=== PATIENT | female | born 1960 | race Caucasian/White ===

== ENCOUNTER → 2024-08-03 12:50 | Outpatient (REF) | payer MEDICARE, OTHER, SELFPAY | LOC: SDSPAT 12:50 | PROVIDERS: ATTENDING PHYSICIAN Obstetrics & Gynecology Gynecologic Oncology; FAMILY PHYSICIAN Family Medicine | DX: D07.1 Carcinoma in situ of vulva (principal) | CPT/HCPCS: 86850; 86900; 86901 ==

== ENCOUNTER 2024-08-07 06:30 | Day surgery (SDC) | payer MEDICARE, OTHER, SELFPAY ==
[2024-08-03 14:09] VITALS: BMI 36.6
[2024-08-07] VITALS (7 sets, daily range): BP systolic 155–187; BP diastolic 76–107; BMI 36.6
[2024-08-07] MEDS: NORMOSOL-R/PLASMALYTE-A 1000 IV (13:55)
[2024-08-07] MEDS: CELEBREX 200 MG PO (14:01)
[2024-08-07] MEDS: NEURONTIN 300 MG PO (14:01)
[2024-08-07] MEDS: TYLENOL 1000 MG PO (14:01)
[2024-08-07] MEDS: HEPARIN 5000 UNITS SC (15:16)
--- NOTE | 2024-08-07 17:05 | OR.RPT ---
Operative Report
Operative Report
Date of operation: August 07, 2024
Preoperative diagnosis: Recurrent Paget's disease of vulva
Postoperative diagnosis same until final pathology
Procedure:
Right sided partial simple vulvectomy including clitoris and right labia
Fractional dilation and curettage
Surgeon: Miguel Chase
Assist: Jennifer Bernabe PA-C
Estimated blood loss 50 cc
Anesthesia: General, LMA
Complications: None
Procedure in detail: This patient was brought to the operating room for resection of recurrent Paget's disease. She has an original diagnosis back in 2014 treated with partial simple vulvectomy and right labia, she has had persistent scaly
erythematous lesion and has been symptomatic for the last 6 to 12 months, because of significant symptoms I did not biopsy it again. Upon arrival to the operating room she was placed in supine position general anesthesia was administered, LMA
intubation was completed. We went ahead and placed in lithotomy position using yellowfin stirrups, all the hair involving mons pubis labia and perianal skin was clipped. The skin was prepped with ChloraPrep and vagina was prepped with Betadine.
The patient was draped. Timeout procedure was completed. I used a marking pen to draw a line starting from mons pubis all the way down to lateral aspects of right labia majora, on the left side incision captured the skin overlying the clitoris and
went to area just above urethra and resected the skin, and then we followed the vaginal introitus margin down to posterior labia minora. I used a [place] tip electrocautery and excised this portion of the skin sparing the base of the clitoris.
Once this was completed specimen was tagged at mons pubis using 2-0 silk suture. I went ahead and began closing the skin incision with a series of interrupted 2-0 Monocryl in a horizontal mattress fashion, between the sutures and 3-0 Monocryl
suture was used to bring the skin edges together and especially around the clitoral foot and periurethral region. Once this was completed we did inject a total of 15 mL of 1% lidocaine with epinephrine on both sides of the incision. Please note
that preemptively prior to performing this excision I had injected similar amount of same medication before. After this because of the relation of Paget's disease to presence of adenocarcinoma in the body I decided to perform an exam next the
vagina was completely normal. Cervix was grasped with single-tooth tenaculum, the cervical os was dilated. Sharp curettage of the endocervix labeled ECC was performed and submitted to pathology. Sharp curettage of the endometrial cavity was
performed and that was submitted to pathology. Counts of laps instruments and needle was correct x 2, I was present and scrubbed for entire procedure as dictated above. We did apply a Silvadene cream to the line of incision and then placed a
Kerlix gauze open has a dressing patient was transferred to PACU.
Disposition: To PACU stable awake and extubated
[2024-08-07] MEDS: DILAUDID 0.5 MG IV (17:08)
[2024-08-07] MEDS: ROXICODONE 5 MG PO (18:14)
== END 2024-08-07 18:45 | disposition home or self-care (01) ==
LOC: SDS 06:30
PROVIDERS: ATTENDING PHYSICIAN Obstetrics & Gynecology Gynecologic Oncology; FAMILY PHYSICIAN Family Medicine
DX: C51.9 Malignant neoplasm of vulva, unspecified (principal)
CPT/HCPCS: 56620; 88305; 88309; 86900; 86901

== ENCOUNTER 2024-11-20 10:49 | Inpatient (IN) | payer MEDICARE, OTHER, SELFPAY ==
[2024-11-20 11:13] VITALS: BMI 36.1
[2024-11-20 11:14] VITALS: BP 153/93
[2024-11-20] MEDS: CELEBREX 200 MG PO (11:21)
[2024-11-20] MEDS: TYLENOL 1000 MG PO (11:22)
[2024-11-20] MEDS: NEURONTIN 300 MG PO (11:22)
[2024-11-20] MEDS: NORMOSOL-R/PLASMALYTE-A 1000 IV (11:30)
[2024-11-20] MEDS: HEPARIN 5000 UNITS SC (14:33)
[2024-11-20 18:08] VITALS: BP 158/89
[2024-11-20 18:15] VITALS: BP 157/85
[2024-11-20 18:30] VITALS: BP 160/79
[2024-11-20 18:45] VITALS: BP 169/91
[2024-11-20 19:10] VITALS: BP 170/90
--- NOTE | 2024-11-27 09:54 | W.DCSUMMARY ---
Discharge Summary
Discharge Data
Date of Admission: 11/20/24
Date of Discharge: 11/20/24
-
Pending Results: Yes
Discharge Plan
-
Patient Disposition: Home (Routine Discharge)
Discharge Diagnosis/Procedures: Vulvar ca
Condition: Good
Diet: No restrictions and Regular
Activity: No strenuous activity
Additional Activity: Avoid lifting more than 10 lbs
Driving Restrictions: No driving for 1 week
Bathing Restrictions: OK to Shower
Referrals:
Chantel Lam MD [Family Provider, Family Practice]
Miguel Chase MD [Active, [employer] EXCH[employer] OPERATOR Oncology]
Prescriptions:
Continued
lansoprazole [Prevacid] 15 mg Capsule,Delayed Release(Dr/Ec)
25 mg PO DAILY PRN (Reason: indigestion)
melatonin 10 mg Tablet
10 mg PO HS PRN (Reason: sleep)
Gemtesa 75 mg Tablet
75 mg PO DAILY
amlodipine 2.5 mg Tablet
2.5 mg PO DAILY
Discharge Orders:
Discharge Patient (As Directed); Ordered 11/26/24
Ordered By: Miguel Chase
Discharge Date and Time
Discharge Date/Time: 11/20/24 19:36
Print Language: ECUADOREAN
--- NOTE | 2024-11-27 09:56 | W.DCSUMMARY ---
Discharge Summary
Discharge Data
Date of Admission: 11/20/24
Date of Discharge: 11/20/24
-
Pending Results: Yes
Hospital Course
63 yo wf presenting for evaluation of new vulvar lesion.
Back in 2018 she had partial vulvectomy for pagets disease and did not return after 2019. Patient apparently has been seen by her
cartridge filler Dr. Clinton, she has been complaining for over 6 months of having vaginal itching at the site of previous surgery with
some odor while wearing pants and also with urination. She was evaluated for vaginitis, and was also given clobetasol for treatment.
This cream did not improve her symptoms. She was sent to urogynecology, the urine evaluation was normal but she was
recommended to see me for repeat evaluation given concern about a lesion on the vulva. Patient had been taken to the operating room on August 08, 2024 where she underwent a partial simple vulvectomy, pathology showed combination of invasive Paget's
disease of vulva the depth of invasion 3.5 mm, LVSI negative as well as in situ Paget's disease and the margins were positive for in situ Paget's disease. Given this finding she was recommended to return back to the operating room today for further
excision as well as evaluation of right groin lymph nodes.
Past medical history significant for high blood pressure and GERD past surgical history significant for knee replacement right side,
bilateral carpal tunnel release,
Elbow surgery, dental surgery, thoracic and spine surgery for fracture at T4�T5, and right wrist surgery in 2019.
Family history significant for father with lung cancer, but mother with breast cancer.
Social history significant for prior history of tobacco use. She has discontinued, she denies alcohol drug and marijuana abuse
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
ALL NKDA
Medical History
Allergies
Allergies No Known Allergies Allergy
Hospital course: This patient was taken to the operating room on November 20, 2024 and underwent partial radical anterior vulvectomy, prior to this portion of the procedure the vulva was injected with ICG dye and sentinel lymph node mapping was
performed. I was unable to map a sentinel lymph node in the right groin and hence I performed superficial lymphadenectomy in the right groin. Incision was closed. The patient returned back to the recovery room. A JONO drain was placed in the right
inguinal region. The patient's pain was under control she was able to ambulate and void without any difficulty and decision was made to discharge home. Patient is instructed to return back to the operating room in 1 week for evaluation of JONO drain
and possible removal.
Discharge Plan
-
Patient Disposition: Home (Routine Discharge)
Discharge Diagnosis/Procedures: Vulvar ca
Condition: Good
Diet: No restrictions and Regular
Activity: No strenuous activity
Additional Activity: Avoid lifting more than 10 lbs
Driving Restrictions: No driving for 1 week
Bathing Restrictions: OK to Shower
Referrals:
Chantel Lam MD [Family Provider, Family Practice]
Miguel Chase MD [Active, COMPENSATION AND BENEFITS ANALYST Oncology]
Prescriptions:
Continued
lansoprazole [Prevacid] 15 mg Capsule,Delayed Release(Dr/Ec)
25 mg PO DAILY PRN (Reason: indigestion)
melatonin 10 mg Tablet
10 mg PO HS PRN (Reason: sleep)
Gemtesa 75 mg Tablet
75 mg PO DAILY
amlodipine 2.5 mg Tablet
2.5 mg PO DAILY
Discharge Orders:
Discharge Patient (As Directed); Ordered 11/26/24
Ordered By: Miguel Chase
Discharge Date and Time
Discharge Date/Time: 11/20/24 19:36
Print Language: SERBIAN
== END 2024-11-20 19:36 | disposition home or self-care (01) | DRG 747 ==
LOC: AMOS 10:49
PROVIDERS: ADMITTING PHYSICIAN Obstetrics & Gynecology Gynecologic Oncology; FAMILY PHYSICIAN Family Medicine
PROC: 0UBMXZZ Excision of Vulva, External Approach (ICD-10-PCS; 2024-11-20)
PROC: 07BH0ZX Excision of Right Inguinal Lymphatic, Open Approach, Diagnostic (ICD-10-PCS; 2024-11-20)
DX: C51.9 Malignant neoplasm of vulva, unspecified (principal); Z01.818 Encounter for other preprocedural examination
CPT/HCPCS: 36415; 86850; 86900; 86901; 88307; 88309; 93005; J0153